=== PATIENT | male | born 1945 | race Caucasian/White ===

== ENCOUNTER → 2016-09-12 | Day surgery (SDC) | payer MEDICARE ==
[~2016-09-12] MED LIST: ACETAMINOPHEN/CODEINE 300 MG/30 MG TAB PO PRN; AMLO5TAB2 PO; ATOR10TA15 PO; BACITRACIN TOP OINT 15 GM TUBE ONE; CHLORHEXIDINE GLUCONATE 2 % 1 PACK (2 CLOTHS) TOPICAL PRN; CLON0.1T PO; DO NOT ADM ANY ANTICOAGULANT DRUGS PRN; EPINEPHRINE OTHER ONE; FAMOTIDINE 20 MG/2 ML VIAL ONE; HYDR25TA5 PO; INSULIN HUMAN REGULAR 1,000 UNITS/10 ML VIAL SQ PRN; LACTATED RINGER'S 1000 ML INJ 1,000 ML IV ONE; LACTATED RINGER'S 1000 ML IV PRN; LIDOCAINE HCL 1% 50 ML VIAL ONE; METF500T PO; METOPROLOL TARTRATE 25 MG TAB PO PRN; MIDAZOLAM HCL 2 MG/2 ML VIAL ONE; ONDANSETRON HCL 4 MG/2 ML VIAL IV PUSH PRN; PHENYLEPH/NS 1000 MCG/10 ML SYR IV ONE; POVIDONE IODINE 5% (ANTISEPSIS KIT) 4 APPLICATIONS EACH NARE PRN; PROPOFOL 200 MG/20 ML AMP IV ONE; SODIUM CHLORID 0.9% 500 ML IV PRN; SODIUM CHLORIDE 0.9% OTHER ONE; TAMS0.4C4 PO; ceFAZolin INJ 1,000 MG VIAL IV ONE; ePHEDrine/NS 25 MG/5 ML SYR IV ONE; fentaNYL CITRATE 250 MCG/5 ML AMP ONE
[2016-09-12 09:12] VITALS: BP 110/69; PULSE 56; RESP 16; TEMP 97.6; O2SAT 95
[2016-09-12 09:29] LABS: AUTOMATED NEUTROPHIL # 3.8 TH/MM3 (1.8-7.7); BASOPHIL % 0.6 % (0.0-2.0); EOSINOPHIL # 0.1 TH/MM3 (0-0.4); EOSINOPHIL % 2.4 % (0.0-4.0); HEMATOCRIT 46.8 % (39.0-51.0); HEMO FLAGS DIFF FINAL; LYMPH % 21.3 % (9.0-44.0); LYMPHOCYTE # 1.3 TH/MM3 (1.0-4.8); MEAN CELL VOLUME 97.9 FL (80.0-100.0); MEAN CORPUSCULAR HEMOGLOBIN 33.6 PG (27.0-34.0); MEAN CORPUSCULAR HGB CONC 34.3 % (32.0-36.0); MONO % 11.2 % (0.0-8.0); NEUT % 64.5 % (16.0-70.0); PLATELET COUNT 297 TH/MM3 (150-450); RED BLOOD COUNT 4.78 MIL/MM3 (4.50-5.90); RED CELL DISTRIBUTION WIDTH 13.5 % (11.6-17.2); WHITE BLOOD COUNT 5.9 TH/MM3 (4.0-11.0)
--- NOTE | 2016-09-12 09:30 | RADRPT ---
EXAM DATE/TIME: 09/12/2016 09:04 [place] COMPARISON: No previous studies available for comparison. INDICATIONS : Pre op parotidectomy. Evaluate for pneumonia, pneumothorax, or any communicable diseases. MEDICAL HISTORY : None. SURGICAL HISTORY : None. ENCOUNTER: Initial ACUITY: 1 day PAIN SCORE: 0/10 LOCATION: Bilateral chest FINDINGS: A single view of the chest demonstrates the lungs to be symmetrically aerated without evidence of mas s, infiltrate or effusion. The cardiomediastinal contours are unremarkable. Osseous structures are intact. CONCLUSION: No acute disease. Dionicio Simmons MD on September 12, 2016 at 9:27 Board Certified Radiologist. This report was verified electronically.
[2016-09-12 10:57] LABS: ALT (GPT) 47 U/L (12-78); ANION GAP 9 MEQ/L (5-15); AST (GOT) 20 U/L (15-37); BICARBONATE 25.2 MEQ/L (21.0-32.0); BLOOD UREA NITROGEN 12 MG/DL (7-18); CHLORIDE 105 MEQ/L (98-107); GLOMERULAR FILTRATION RATE 112 ML/MIN (>89); POTASSIUM 3.7 MEQ/L (3.5-5.1); SODIUM (NA) 139 MEQ/L (136-145)
[2016-09-12 10:59] LABS: ALKALINE PHOSPHATASE 81 U/L (45-117); TOTAL BILIRUBIN ADULT 0.9 MG/DL (0.2-1.0)
[2016-09-12 13:53] VITALS: BP 147/91; PULSE 79; RESP 16; TEMP 97.2; O2SAT 94
--- NOTE | 2016-09-12 22:52 | EKG ---
Date Performed: 09/12/2016 Time Performed: 09:18:00 PTAGE: 71 years EKG: SINUS BRADYCARDIA BORDERLINE ECG NO PREVIOUS TRACING DOCTOR: Amina Castro Interpretating Date/Time 09/12/2016 22:52:06
--- NOTE | 2016-09-15 07:56 | MP ---
cc: BONITA SHELBY DR. CRAVEN, MICHAEL, M.D. DATE OF SURGERY: 09/14/2016 PREOPERATIVE DIAGNOSIS: Right parotid mass. POSTOPERATIVE DIAGNOSIS: Right parotid mass. OPERATION: Right parotidectomy with facial nerve preservation. Code 73008. ANESTHESIA: General. FINDINGS: The patients facial nerves preserved and monitored 4 cm parotid mass removed. BLOOD LOSS Minimal. SPECIMEN Right parotid mass. IMPLANTS: None. COMPLICATIONS: None. DISPOSITION To Post-Anesthesia Care Unit in stable condition. SURGEON: Jai Cole MD. LEPIDOPTERIST Dr. Paddy Webb. INDICATIONS FOR SURGERY: The patient is a pleasant 71-year-old male with a history of slow growing right parotid mass. CAT scan confirmed the mass and the fine-needle aspiration was not definitively diagnostic. It was elected to proceed with removal of the mass. DESCRIPTION OF SURGERY After informed consent was obtained, the patient was brought to the main operating room where he underwent general anesthesia. The right face was marked in the holding area and the area was prepped and draped in normal sterile fashion. All the preoperative risks were reiterated to include risk of facial nerve injury as well as greater auricular nerve injury. There is also risks noted, but to not strictly related to bleeding, infection and scarring. The patient would like to proceed as above. The patient underwent general endotracheal anesthesia, no long-term paralytics. The right parotid area was injected with a total of 9 mL of epinephrine 1:100,000. This was compounded by or pharmacy, the patients had probes placed on the appropriate areas on the forehead, muscles of orbicularis oculi and orbicularis madeline The skin incision was made in a curvilinear fashion to the adipose tissue, this was done as a modified Ben incision and the flap was raised over the parotid fascia and dissected with dissection scissors as well as the 15 blade. Agency were used to retract the flap anteriorly. Of note the posterior edge of the incision was manually undermined, the closure and then attention of the wound. The flap was raised around the tumor. Dr. Webb assisted with the raising of the flap as well as the dissection around the tumor. The dissection was bluntly, and sharply carried around the parotid tumor using bipolar cautery as well. Dissection carried circumferentially around the tumor mass be sure to hug the capsule of the tumor. Once we got towards the inferior aspect, the medial aspect of the tumor we confirmed that the facial nerve was not involved as well, as throughout the entirety of the time of the dissection. The tumor appeared to be removed completely. Bipolar was used for cautery, of note a 2-0 silk tie was used to help retract the ear lobe posteriorly, over the ear to help with dissection as well. After the parotid tumor was removed in total irrigation was used with warm saline within the tumor bed. The wound was closed in layers with 3-0 Vicryl for the deep layer. 3-0 Vicryl for the subcuticular layer and jarrod for the skin. The patient tolerated procedure well and there is no further bleeding a face life dressing was placed after bacitracin was placed. The patient tolerated the procedure well. The patient was well at the end of the procedure in the recovery room. The patients facial nerve was well intact. Jai Cole MD CCP/khadra /8:07 AM /7:30 AM [id number]
== END | disposition home or self-care (01) ==
LOC: HSDC 08:31
PROVIDERS: ATTEND Otolaryngology Otolaryngology/Facial Plastic Surgery
DX: D11.0 Benign neoplasm of parotid gland (principal); I10 Essential (primary) hypertension; Z01.818 Encounter for other preprocedural examination
CPT/HCPCS: 00100; 42415; 71010; 80053; 85025; 88304; 93005; J0171; J0690; J2250; J2370; J3010; J7120; 88307